=== PATIENT | male | born 1950 | race Caucasian/White ===

== ENCOUNTER 2020-05-28 15:18 | Emergency (ER) | payer MEDICARE ==
[~2020-05-28] VITALS: Ht 177.8 cm; Wt 85.3 kg
[~2020-05-28 15:18] MED LIST: GABAPENTIN400 MG PO; PAXIL40 MG PO; ZOCOR10 MG PO
[2020-05-28] MEDS ORDERED: LISINOPRIL20 MG PO (17:39)
[2020-05-28] MEDS ORDERED: CEPHALEXIN500 MG PO (19:28)
== END 2020-05-28 20:06 | disposition home or self-care (01) ==
LOC: ED 15:18
DX: L72.3 Sebaceous cyst (principal); I10 Essential (primary) hypertension; F17.200 Nicotine dependence, unspecified, uncomplicated; Z79.899 Other long term (current) drug therapy
CPT/HCPCS: 99282

== ENCOUNTER 2021-06-15 13:52 | Emergency (ER) | payer MEDICARE ==
[~2021-06-15] VITALS: Ht 177.8 cm; Wt 85.3 kg
[~2021-06-15 13:52] MED LIST changes: +CEPHALEXIN500 MG PO; +LISINOPRIL20 MG PO
[2021-06-15] MEDS ORDERED: PREDNISONE20 MG PO (19:41)
--- NOTE | 2021-06-18 11:42 | EKG ---
[facility] [address] [facility] [place], [place] [address] Signed Sinus rhythm with premature atrial complexes Nonspecific ST abnormality Prolonged QT Abnormal ECG No previous ECGs available Confirmed by BOBO PRINCE MD ([id number] on 06/18/2021 11:41:43 AM Electronically Signed By: BOBO PRINCE MD 06/18/21 1142 PATIENT NAME: KATHLEEN OJEDA Electrocardiogram DATE OF : 50 PHYSICIAN: BOBO PRINCE MD REPORT #: [id number] REPORT IS CONFIDENTIAL AND NOT TO BE RELEASED WITHOUT AUTHORIZATION
== END 2021-06-15 20:10 | disposition home or self-care (01) ==
LOC: ED 13:52
DX: J44.1 Chronic obstructive pulmonary disease with (acute) exacerbation (principal); I10 Essential (primary) hypertension; F17.200 Nicotine dependence, unspecified, uncomplicated; Z79.899 Other long term (current) drug therapy
CPT/HCPCS: 36415; 71045; 74177; 80053; 83880; 84484; 85025; 85610; 93005; 93010; 99285-25; J7512; Q9967

== ENCOUNTER 2021-06-28 08:57 | Emergency (ER) | payer MEDICARE ==
[~2021-06-28] VITALS: Ht 177.8 cm; Wt 87.3 kg
[~2021-06-28 08:57] MED LIST changes: +PREDNISONE20 MG PO
--- OUTSIDE RECORDS SUMMARY | 2021-06-28 09:06 | XMS ---
PreManage Notification: KATHLEEN OJEDA [employer] Intern Events No recent Security Events currently on file CRITERIA MET - [facility] - 2 Visits in 30 Days CARE PROVIDERS There are no care providers on record at this time. Kenn has no Care Guidelines for this patient. Jane VISIT COUNT (12 MO.) [address] [facility] L[place] H. TOTAL 2 NOTE: Visits indicate total known visits. ED/C VISIT TRACKING (12 MO.) 06/28/2021 08:[address] [facility] [place] TYPE: Emergency COMPLAINT: - FLU SYMPTOMS 06/15/2021 13:[address] [facility] [place] TYPE: Emergency COMPLAINT: - DIFFUCULTY BREATHING DIAGNOSES: - Other care home (current) drug therapy - Essential (primary) hypertension - Nicotine dependence, unspecified, uncomplicated - Chronic obstructive pulmonary disease with (acute) exacerbation - Shortness of breath INPATIENT VISIT TRACKING (12 MO.) No inpatient visits to display in this time frame [email or web address]
[2021-06-28] MEDS ORDERED: ONDANSETRON ODT4 MG PO (13:00)
== END 2021-06-28 13:17 | disposition home or self-care (01) ==
LOC: ED 08:57
DX: R11.2 Nausea with vomiting, unspecified (principal); E87.6 Hypokalemia; I10 Essential (primary) hypertension; F17.200 Nicotine dependence, unspecified, uncomplicated; Z79.52 Long term (current) use of systemic steroids; Z79.899 Other long term (current) drug therapy; Z20.822 Contact with and (suspected) exposure to COVID-19
CPT/HCPCS: 36415; 80053; 83690; 85025; 96374; 99284-25; A9270; C9803; J2405; J7030; U0003

== ENCOUNTER 2021-09-30 02:41 | Emergency (ER) | payer MEDICARE ==
[~2021-09-30] VITALS: Ht 152.4 cm; Wt 88.5 kg
[~2021-09-30 02:41] MED LIST changes: +ONDANSETRON ODT4 MG PO
[2021-09-30] MEDS ORDERED: DOXYCYCLINE HY100 MG PO (04:28)
--- NOTE | 2021-09-30 12:46 | EKG ---
[facility] [address] [facility] [place] [address] Signed Sinus rhythm with premature supraventricular complexes Cannot rule out Inferior infarct , age undetermined Abnormal ECG When compared with ECG of 15-JUN-2021 13:56, No significant change was found Confirmed by SIERRA KELLEY MD ([id number] on 09/30/2021 12:46:41 PM Electronically Signed By: SIERRA KELLEY MD 09/30/21 1246 PATIENT NAME: KATHLEEN OJEDA Electrocardiogram DATE OF : 50 PHYSICIAN: SIERRA KELLEY MD REPORT #: [id number] REPORT IS CONFIDENTIAL AND NOT TO BE RELEASED WITHOUT AUTHORIZATION
== END 2021-09-30 05:40 | disposition home or self-care (01) ==
LOC: ED 02:41
DX: J18.9 Pneumonia, unspecified organism (principal); E86.0 Dehydration; E87.6 Hypokalemia; I10 Essential (primary) hypertension; F17.200 Nicotine dependence, unspecified, uncomplicated; Z79.899 Other long term (current) drug therapy; Z20.822 Contact with and (suspected) exposure to COVID-19
CPT/HCPCS: 36415; 71045; 80053; 83735; 83880; 84484; 85025; 87502; 93005; 93010; 96360; 99285-25; A9270; C9803; J7030; U0003

== ENCOUNTER 2023-03-19 15:10 | Emergency (ER) | payer OTHER, MEDICARE ==
[~2023-03-19] VITALS: Ht 177.8 cm; Wt 90.9 kg
[~2023-03-19 15:10] MED LIST changes: +DOXYCYCLINE HY100 MG PO
[2023-03-19] MEDS ORDERED: CEPHALEXIN500 M1 PO (18:09)
[2023-03-19 18:18] VITALS: BP 171/77
== END 2023-03-19 18:18 | disposition home or self-care (01) ==
LOC: ED 15:10
DX: S60.352A Superficial foreign body of left thumb, initial encounter (principal); I89.1 Lymphangitis; I10 Essential (primary) hypertension; F17.200 Nicotine dependence, unspecified, uncomplicated; W45.8XXA Other foreign body or object entering through skin, initial encounter; Z79.899 Other long term (current) drug therapy
CPT/HCPCS: 10120; 99283-25; A9270

== ENCOUNTER 2023-10-17 12:57 | Emergency (ER) | payer OTHER, MEDICARE ==
[~2023-10-17] VITALS: Ht 177.8 cm; Wt 91.3 kg
[~2023-10-17 12:57] MED LIST changes: +CEPHALEXIN500 M1 PO
[2023-10-17] MEDS ORDERED: NORVASC5 MG PO (13:12)
[2023-10-17 13:44] VITALS: BP 146/91
== END 2023-10-17 13:44 | disposition home or self-care (01) ==
LOC: ED 12:57
DX: S60.352A Superficial foreign body of left thumb, initial encounter (principal); X58.XXXA Exposure to other specified factors, initial encounter; L02.512 Cutaneous abscess of left hand; I10 Essential (primary) hypertension; F17.200 Nicotine dependence, unspecified, uncomplicated; Z79.899 Other long term (current) drug therapy
CPT/HCPCS: 10120; 99283-25